=== PATIENT | female | born 1975 | race Two or more races ===

== ENCOUNTER → 2023-09-08 | Emergency (ER) | payer OTHER ==
[~2023-09-08] VITALS: Ht 162.6 cm; Wt 78.0 kg
[~2023-09-08] MED LIST: LANTUS SOL100 UNIT/1
== END | disposition home or self-care (01) ==
LOC: ER 00:36
DX: F41.1 Generalized anxiety disorder (principal); T78.40XA Allergy, unspecified, initial encounter